=== PATIENT | female | born 1950 | race Hispanic/Latino ===

== ENCOUNTER 2019-01-19 19:39 | Inpatient (IN) | payer OTHER ==
[~2019-01-19] VITALS: Ht 167.6 cm; Wt 88.2 kg
[2019-01-19] MEDS ORDERED: MEROPENEM 1 GM VIAL ONE (19:56)
[2019-01-19] MEDS ORDERED: ONDANSETRON HCL 4 MG/2 ML VIAL ONE (19:56)
[2019-01-19 20:10] LABS: BASOPHILS % (AUTO) 0.3 % (0.0-5.0); EOSINOPHILS % (AUTO) 0.1 % (0.0-8.0); HEMATOCRIT 33.7 % (36-48); LYMPHOCYTES % (AUTO) 3.2 % (21.0-51.0); MEAN CORPUSCULAR HEMOGLOBIN 29.4 pg (27.0-33.0); MEAN CORPUSCULAR HGB CONC 33.3 g/dL (32.0-36.0); MEAN CORPUSCULAR VOLUME 88.4 fL (79-99); MONOCYTES % (AUTO) 6.2 % (3.0-13.0); NEUTROPHILS % (AUTO) 90.2 % (40.0-77.0); PLATELET COUNT (AUTO) 206 K/uL (130-400); RED BLOOD CELL COUNT(AUTO) 3.81 MIL/uL (4.00-5.50); RED CELL DISTRIBUTION WIDTH 14.9 % (11.0-15.5); WHITE BLOOD COUNT (AUTO) 11.9 K/uL (4.8-10.8)
[2019-01-19 20:25] LABS: CREATININE 1.4 mg/dL (0.5-1.5); POTASSIUM 3.5 mmol/L (3.5-5.1)
[2019-01-19 20:29] LABS: INR 0.99 (0.85-1.15); PARTIAL THROMBOPLASTIN TIME 34.1 SEC (26.3-35.5); PROTHROMBIN TIME 10.4 SEC (9.6-11.6)
[2019-01-19 20:50] LABS: ALBUMIN 2.9 g/dL (3.5-5.0); BILIRUBIN,TOTAL 0.6 mg/dL (0.2-1.0); TOTAL PROTEIN, SERUM 7.3 g/dL (6.0-8.3); TROPONIN I 0.06 ng/mL (0.00-0.06)
[2019-01-19 20:54] LABS: APPEARANCE,URINE Cloudy (CLEAR); BILIRUBIN,URINE Negative (NEGATIVE); COLOR,URINE Yellow (YELLOW); GLUCOSE, URINE (UA) Negative (NEGATIVE); KETONES,URINE 15 mg/dL (NEGATIVE); LEUKOCYTE ESTERASE ,URINE Moderate (NEGATIVE); NITRATE,URINE Negative (NEGATIVE); OCCULT BLOOD,URINE Large (NEGATIVE); PROTEIN,URINE 300 mg/dL (NEGATIVE)
[2019-01-19 21:15] LABS: AMORPHOUS SEDIMENT,UR Few /LPF (None Seen); BACTERIA,URINE Few /HPF (None Seen); SQUAMOUS EPITHELIAL CELL,UR None Seen /HPF (0-2)
[2019-01-19] MEDS ORDERED: ACETAMINOPHEN 325 MG TAB PO PRN (22:00)
[2019-01-19] MEDS: MEROPENEM 500 MG VIAL IV SCH (22:00)
[2019-01-19] MEDS ORDERED: ONDANSETRON HCL 4 MG/2 ML VIAL IV PRN (22:00)
[2019-01-19 22:15] VITALS: BP 124/65
[2019-01-19] MEDS: SODIUM CHLORIDE 0.9% 1000ML 1,000 ML IV SCH (22:28)
[2019-01-20] MEDS: ACETAMINOPHEN 325 MG TAB PO PRN ×2 (03:22→19:48)
[2019-01-20 04:00] VITALS: BP 127/62
[2019-01-20] MEDS: SODIUM CHLORIDE 0.9% 1000ML 1,000 ML IV SCH ×3 (04:31→18:17)
[2019-01-20] MEDS: MEROPENEM 500 MG VIAL IV SCH ×3 (05:15→22:49)
[2019-01-20] MEDS: INSULIN HUMULIN R 100 UNIT/ML 3ML SQ SCH ×4 (05:51→20:10)
[2019-01-20 08:00] VITALS: BP 113/48
[2019-01-20] MEDS ORDERED: ENOXAPARIN SODIUM 30 MG/0.3 ML SQ SCH (09:00)
[2019-01-20] MEDS: FAMOTIDINE/PF 20 MG/2 ML VIAL IV SCH ×2 (09:14→19:48)
[2019-01-20] MEDS: PHENAZOPYRIDINE HCL 200 MG TABLET PO SCH ×3 (09:15→19:49)
[2019-01-20] MEDS ORDERED: ONDA8TAB12 PO (11:13)
[2019-01-20] MEDS ORDERED: MULT-1250 PO (11:13)
[2019-01-20] MEDS ORDERED: LISI40TA4 PO (11:13)
[2019-01-20] MEDS ORDERED: GLYB5TAB8 PO (11:13)
[2019-01-20] MEDS ORDERED: PANT40TA25 PO (11:13)
[2019-01-20] MEDS ORDERED: NIFE60TA81 PO (11:13)
[2019-01-20] MEDS ORDERED: TOPI25TA48 PO (11:13)
[2019-01-20] MEDS ORDERED: TRAM50TA4 PO (11:13)
[2019-01-20] MEDS ORDERED: MELO-108 PO (11:13)
[2019-01-20] MEDS ORDERED: GLUC-236 PO (11:13)
[2019-01-20] MEDS ORDERED: MONT10TA24 PO (11:13)
[2019-01-20] MEDS ORDERED: MIRA50TA PO (11:13)
[2019-01-20] MEDS ORDERED: HYDR-4153 PO (11:13)
[2019-01-20] MEDS ORDERED: SODI30SP3 NS (11:13)
[2019-01-20] MEDS ORDERED: LEVO5TAB13 PO (11:13)
[2019-01-20] MEDS ORDERED: [UNRECOGNIZED DRUG - OTHER] (11:13)
[2019-01-20] MEDS ORDERED: ASPI-555 PO (11:13)
[2019-01-20] MEDS ORDERED: ROPI1TAB11 PO (11:13)
[2019-01-20] MEDS ORDERED: ANAS1TAB7 PO (11:13)
[2019-01-20 12:00] VITALS: BP 99/41
--- NOTE | 2019-01-20 13:22 | NUR ---
D/C PLAN CM spoke to pt regarding d/c planning. Pt is [place] and lives spouse. states spouse can assist in care if needed. Pt has wk at home but does not use. No needs verbalized or identified. Plan to home. CM to f/u Addendum: 01/20/19 at 1326 by JOAN CARRILLO CM Amended: Links added.
[2019-01-20 16:00] VITALS: BP 113/60
[2019-01-20] MEDS: MONTELUKAST SODIUM 10 MG TAB PO SCH (19:47)
[2019-01-20] MEDS: TOPIRAMATE 25 MG TABLET PO SCH (19:47)
[2019-01-20] MEDS: ROPINIROLE HCL 1 MG TABLET PO SCH (19:47)
[2019-01-20] MEDS: ASPIRIN 81 MG EC TAB PO SCH (19:47)
[2019-01-20] MEDS: ANASTROZOLE 1 MG PO SCH (19:51)
[2019-01-20] MEDS: ***HM**(Mirabegron (Myrbetriq) 50 MG) PO SCH (19:51)
[2019-01-20 20:00] VITALS: BP 142/63
[2019-01-21 00:05] VITALS: BP 108/60
[2019-01-21] MEDS: SODIUM CHLORIDE 0.9% 1000ML 1,000 ML IV SCH ×4 (00:29→21:44)
[2019-01-21 04:00] VITALS: BP 122/51
[2019-01-21] MEDS: MEROPENEM 500 MG VIAL IV SCH ×3 (04:13→21:46)
[2019-01-21] MEDS: ACETAMINOPHEN 325 MG TAB PO PRN (04:13)
[2019-01-21] MEDS: INSULIN HUMULIN R 100 UNIT/ML 3ML SQ SCH ×4 (06:06→21:00)
[2019-01-21 07:01] LABS: MEAN CORPUSCULAR HGB CONC 32.9 g/dL (32.0-36.0); MEAN CORPUSCULAR VOLUME 88.3 fL (79-99); PLATELET COUNT (AUTO) 259 K/uL (130-400); RED BLOOD CELL COUNT(AUTO) 3.96 MIL/uL (4.00-5.50); WHITE BLOOD COUNT (AUTO) 9.9 K/uL (4.8-10.8)
[2019-01-21 07:29] VITALS: BP 117/72
[2019-01-21 07:31] LABS: CREATININE 1.1 mg/dL (0.5-1.5); POTASSIUM 3.5 mmol/L (3.5-5.1)
[2019-01-21] MEDS: LEVOCETIRIZINE DIHYDROCHLORIDE 5 MG PO SCH (09:00)
[2019-01-21] MEDS: FAMOTIDINE/PF 20 MG/2 ML VIAL IV SCH ×2 (09:57→21:45)
[2019-01-21] MEDS: SODIUM CHLORIDE 45 ML SPRY NS SCH (09:57)
[2019-01-21] MEDS: NIFEDIPINE ER 30 MG TAB PO SCH (09:58)
[2019-01-21] MEDS: PHENAZOPYRIDINE HCL 200 MG TABLET PO SCH ×3 (09:59→21:45)
[2019-01-21] MEDS: ROPINIROLE HCL 1 MG TABLET PO SCH ×2 (09:59→21:47)
[2019-01-21] MEDS: TRAMADOL HCL 50 MG TABLET PO SCH ×2 (09:59→21:46)
[2019-01-21] MEDS: ENOXAPARIN SODIUM 30 MG/0.3 ML SQ SCH (10:01)
[2019-01-21 12:00] VITALS: BP 102/48
[2019-01-21 16:00] VITALS: BP 103/48
[2019-01-21 20:00] VITALS: BP 115/51
[2019-01-21] MEDS: ASPIRIN 81 MG EC TAB PO SCH (21:47)
[2019-01-21] MEDS: MONTELUKAST SODIUM 10 MG TAB PO SCH (21:47)
[2019-01-21] MEDS: TOPIRAMATE 25 MG TABLET PO SCH (21:47)
[2019-01-21] MEDS: ***HM**(Mirabegron (Myrbetriq) 50 MG) PO SCH (21:59)
[2019-01-21] MEDS: ANASTROZOLE 1 MG PO SCH (22:00)
[2019-01-22] VITALS (7 sets, daily range): BP systolic 119–145; BP diastolic 55–71
[2019-01-22] MEDS: MEROPENEM 500 MG VIAL IV SCH ×2 (04:22→14:19)
[2019-01-22] MEDS: SODIUM CHLORIDE 0.9% 1000ML 1,000 ML IV SCH ×3 (04:22→22:43)
[2019-01-22] MEDS: INSULIN HUMULIN R 100 UNIT/ML 3ML SQ SCH ×4 (05:57→20:33)
[2019-01-22 06:18] LABS: HEMATOCRIT 33.6 % (36-48); MEAN CORPUSCULAR HEMOGLOBIN 29.5 pg (27.0-33.0); MEAN CORPUSCULAR HGB CONC 33.5 g/dL (32.0-36.0); MEAN CORPUSCULAR VOLUME 88.2 fL (79-99); PLATELET COUNT (AUTO) 264 K/uL (130-400); RED BLOOD CELL COUNT(AUTO) 3.81 MIL/uL (4.00-5.50); WHITE BLOOD COUNT (AUTO) 6.2 K/uL (4.8-10.8)
[2019-01-22 06:25] LABS: CREATININE 0.9 mg/dL (0.5-1.5); POTASSIUM 3.3 mmol/L (3.5-5.1)
--- NOTE | 2019-01-22 07:08 | NUR ---
Pt. reported she had epiusodes of loose stool ,instructed pt. to collect specimen .Report given to incoming NOD using SBAR all questions answered.
[2019-01-22] MEDS: LEVOCETIRIZINE DIHYDROCHLORIDE 5 MG PO SCH (09:00)
[2019-01-22] MEDS: SODIUM CHLORIDE 45 ML SPRY NS SCH (09:00)
[2019-01-22] MEDS: FAMOTIDINE/PF 20 MG/2 ML VIAL IV SCH (09:29)
[2019-01-22] MEDS: PHENAZOPYRIDINE HCL 200 MG TABLET PO SCH ×3 (09:29→20:21)
[2019-01-22] MEDS: TRAMADOL HCL 50 MG TABLET PO SCH ×2 (09:30→20:21)
[2019-01-22] MEDS: ROPINIROLE HCL 1 MG TABLET PO SCH ×2 (09:30→20:21)
[2019-01-22] MEDS: NIFEDIPINE ER 30 MG TAB PO SCH (09:30)
[2019-01-22] MEDS: ENOXAPARIN SODIUM 30 MG/0.3 ML SQ SCH (09:32)
[2019-01-22] MEDS: MONTELUKAST SODIUM 10 MG TAB PO SCH (20:21)
[2019-01-22] MEDS: ASPIRIN 81 MG EC TAB PO SCH (20:22)
[2019-01-22] MEDS: POTASSIUM CHLORIDE 20 MEQ ERTAB PO SCH ×2 (20:22→20:25)
[2019-01-22] MEDS: TOPIRAMATE 25 MG TABLET PO SCH (20:22)
[2019-01-22] MEDS: ***HM**(Mirabegron (Myrbetriq) 50 MG) PO SCH (20:24)
[2019-01-22] MEDS: ANASTROZOLE 1 MG PO SCH (20:25)
[2019-01-22] MEDS: FAMOTIDINE 20MG TAB 20 MG TAB PO SCH (20:26)
[2019-01-22] MEDS: MEROPENEM 1 GM VIAL IV SCH (22:47)
[2019-01-23 03:49] VITALS: BP 128/55
[2019-01-23 04:48] LABS: HEMATOCRIT 33.3 % (36-48); MEAN CORPUSCULAR HEMOGLOBIN 29.2 pg (27.0-33.0); MEAN CORPUSCULAR HGB CONC 33.4 g/dL (32.0-36.0); MEAN CORPUSCULAR VOLUME 87.4 fL (79-99); PLATELET COUNT (AUTO) 339 K/uL (130-400); RED BLOOD CELL COUNT(AUTO) 3.81 MIL/uL (4.00-5.50); RED CELL DISTRIBUTION WIDTH 14.7 % (11.0-15.5)
[2019-01-23 05:01] LABS: CREATININE 0.9 mg/dL (0.5-1.5); POTASSIUM 3.6 mmol/L (3.5-5.1)
[2019-01-23] MEDS: MEROPENEM 1 GM VIAL IV SCH (05:39)
[2019-01-23] MEDS: INSULIN HUMULIN R 100 UNIT/ML 3ML SQ SCH ×3 (05:50→16:30)
[2019-01-23 08:34] VITALS: BP 132/72
[2019-01-23] MEDS: LEVOCETIRIZINE DIHYDROCHLORIDE 5 MG PO SCH (09:00)
[2019-01-23] MEDS: PHENAZOPYRIDINE HCL 200 MG TABLET PO SCH (09:00)
[2019-01-23] MEDS: ROPINIROLE HCL 1 MG TABLET PO SCH (09:48)
[2019-01-23] MEDS: NIFEDIPINE ER 30 MG TAB PO SCH (09:49)
[2019-01-23] MEDS: FAMOTIDINE 20MG TAB 20 MG TAB PO SCH (09:49)
[2019-01-23] MEDS: TRAMADOL HCL 50 MG TABLET PO SCH (09:50)
[2019-01-23] MEDS: POTASSIUM CHLORIDE 20 MEQ ERTAB PO SCH ×2 (10:04→14:00)
[2019-01-23] MEDS: SODIUM CHLORIDE 45 ML SPRY NS SCH (10:06)
[2019-01-23] MEDS: ENOXAPARIN SODIUM 30 MG/0.3 ML SQ SCH (10:06)
[2019-01-23] MEDS ORDERED: LEVOFLOXACIN 750 MG/D5W 150 ML 150 ML IV SCH (10:45)
[2019-01-23] MEDS: SODIUM CHLORIDE 0.9% 1000ML 1,000 ML IV SCH (12:40)
--- NOTE | 2019-01-23 15:16 | NUR ---
PER OSCAR JOYA, PATIENT IS READY TO BE D/C THIS PM. Addendum: 01/23/19 at 1518 by CELIO RICH, PT PT Amended: Links added.
--- NOTE | 2019-01-23 16:45 | NUR ---
Discharge instruction given to patient and and they verbalized understanding , iv d/c with catheter intact and pressure held on site till bleeding stopped and then site dressed, reviewed medication patient is to continue and new prescriptions for levofloxacin 750 po daily for 14 days ( first po dose in am 01/24/19) patient given iv dose today. no questions or concerns at this time patient taking by wheelchair to lobby and left with for home.
== END 2019-01-23 16:45 | disposition home or self-care (01) | DRG 872 ==
LOC: EDH 19:39 → EDHIP 21:25 → 3DH 22:05
PROVIDERS: ADMIT Internal Medicine; ATTEND Internal Medicine
DX: A41.50 Gram-negative sepsis, unspecified (principal); N39.0 Urinary tract infection, site not specified; E11.9 Type 2 diabetes mellitus without complications; Z68.31 Body mass index [BMI] 31.0-31.9, adult; E66.9 Obesity, unspecified; B96.20 Unspecified Escherichia coli [E. coli] as the cause of diseases classified elsewhere; E78.5 Hyperlipidemia, unspecified; I10 Essential (primary) hypertension; J98.4 Other disorders of lung; K21.9 Gastro-esophageal reflux disease without esophagitis; E87.6 Hypokalemia; Z79.84 Long term (current) use of oral hypoglycemic drugs; Z85.3 Personal history of malignant neoplasm of breast; Z90.710 Acquired absence of both cervix and uterus; Z92.21 Personal history of antineoplastic chemotherapy; Z92.3 Personal history of irradiation; Z88.0 Allergy status to penicillin; Z88.8 Allergy status to other drugs, medicaments and biological substances
CPT/HCPCS: 36415; 71045; 80048; 80053; 81001; 82550; 82948; 83605; 83874; 84484; 85025; 85027; 85610; 85730; 87040; 87077; 87088; 87186; 93005; 99291; G0378; J1650; J1956; J2185; J2405; J3490; J7030